=== PATIENT | male | born 1945 | race Caucasian/White ===

== ENCOUNTER → 2017-05-05 | Outpatient (CLI) | payer MEDICARE ==
[~2017-05-05] MED LIST: Z.0.NO CURRENT MEDS
--- NOTE | 2017-05-05 21:51 | EKG ---
Date Performed: 05/05/2017 Time Performed: 11:54:39 PTAGE: 71 years EKG: Sinus rhythm LOW QRS VOLTAGE IN EXTREMITY LEADS MODERATE INTRAVENTRICULAR CONDUCTION DELAY ABNORMAL ECG PREVIOUS TRACING : 10/19/2012 10.34 DOCTOR: Yasmeen Spears Interpretating Date/Time 05/05/2017 21:49:47
== END ==
LOC: PHPRE 11:04
PROVIDERS: ATTEND Ophthalmology
DX: R94.31 Abnormal electrocardiogram [ECG] [EKG] (principal)
CPT/HCPCS: 93005

== ENCOUNTER → 2017-05-19 | Day surgery (SDC) | payer MEDICARE ==
--- NOTE | 2017-05-07 12:28 | MH ---
cc: [facility], JOSE BARKER DATE OF ADMISSION 05/19/2017 ADMISSION DIAGNOSIS Cataract, right eye. HISTORY OF PRESENT ILLNESS This 71-year-old white male is coming through [facility] for the purpose of a lens extraction of the right eye with intraocular lens implant under local anesthesia. He has noted decreasing visual acuity interfering with his daily activities and elected to have the above procedure. He had a similar procedure on the left eye in October 2012 and has done well postoperatively. His best-corrected visual acuity is 20/40 -2 in the right eye in room light and 20/20 in the left eye. PAST MEDICAL HISTORY The patient has a history of the prostate problems and seasonal allergic conjunctivitis. PAST SURGICAL HISTORY Surgical history includes hernia surgery, left arthroscopic knee surgery, prostate ablation and the cataract surgery in the left eye. MEDICATIONS Daily medications include: 1. Multivitamin. 2. Probiotic. 3. History of Flomax use years ago. ALLERGIES No known allergies. SOCIAL HISTORY He does not smoke and drinks alcohol occasionally. FAMILY HISTORY Positive for father with cataract. REVIEW OF SYSTEMS HEAD: Patient denies severe headaches, dizziness or recent head injury. EARS: Patient denies hearing loss, ear pain, discharge or ringing in the ears. NOSE: Patient denies nasal discharge, obstruction or frequent colds. MOUTH AND THROAT: Patient denies soreness of the mouth or tongue, bleeding gums, trouble swallowing, changes in voice or sore throat. NECK: Patient denies neck pain or swelling, limitation of neck movement or neck injury. CARDIOPULMONARY SYSTEM: Patient denies shortness of breath, orthopnea, chronic cough, sputum production, hemoptysis, chest pain, wheezing, palpitations or light-headedness. GI SYSTEM: Patient denies poor appetite, nausea, vomiting, abdominal pain, ulcers, hemorrhoids or change in bowel habits. SYSTEM: The patient denies urinary frequency, dysuria, change in urine color. NERVOUS SYSTEM: Patient denies convulsions, vertigo, stroke, numbness or weakness. PHYSICAL EXAMINATION VITAL SIGNS: Blood pressure 132/86, pulse 76, respirations 20. HEAD: Normocephalic, atraumatic. NOSE: Without rhinorrhea. THROAT: Clear. NECK: Supple. CHEST: Clear. HEART: Regular rhythm. ABDOMEN: Without tenderness. EXTREMITIES: Without edema. NEUROLOGIC: Within normal limits. MENTAL STATUS: Within normal limits. EYE EXAM: The patient's best-corrected visual acuity is 20/40 -2 in the right eye in room light and 20/20 in the left eye. Visual morat[place] are full to confrontation testing. Extraocular muscle exam reveals full versions with orthophoria at distance and near. Pupils are 2.5 mm equal, round, reactive to light without afferent defect. Anterior segment examination reveals nuclear sclerotic, posterior subcapsular and posterior cortical cataract changes in the right eye and posterior chamber intraocular lens in place in the left eye. Intraocular pressure is 22 in each eye by applanation tonometry. Dilated fundus exam revealed sharp disks with cup-to-disk ratio of 0.3 bilaterally. The macula of the right eye is clear. There is some perifoveal cellophaning in the left macula. A posterior vitreous detachment was noted greater in the left eye than the right. IMPRESSION 1. Cataract, right eye. 2. Pseudophakia, left eye. 3. Posterior vitreous detachment, both eyes. 4. Early epiretinal membrane left eye in the macula. 5. Ocular hypertension, mild, both eyes. PLAN Lens extraction of the right eye with intraocular lens implant under local anesthesia through [facility]. The patient has been cleared medically. He has been counseled as to the risks, benefits and alternatives and elected to proceed. I feel that cataract surgery will improve the quality of life and activities of daily living in this patient. MD STANLEY Merlos/MICHAEL /11:53 AM /12:08 PM
[~2017-05-19] VITALS: Ht 172.7 cm; Wt 80.9 kg
[~2017-05-19] MED LIST changes: +ACETYLCHOLINE CHL OPHT SOLN 1:100 2 ML VIAL ONE; +EPINEPHrine HCL PF/SF (1:1000) 1 MG/ML AMP I-OCULAR ONE; +HYALURONIDASE/LIDOCAINE/BUPIVACAINE 5 ML SYR RIGHT EYE ONE; +PILOCARPINE HCL 2% OPHT SOLN 15 ML BTL ONE; +PROPARACAINE HCL 0.5% OPHT SOLN 15 ML BTL RIGHT EYE ONE; +PROPOFOL 200 MG/20 ML AMP ONE; +SODIUM CHLORID 0.9% 500 ML INJ 500 ML ONE; +TOBRAMYCIN/DEXAMETHASONE OPTH OINT 3.5 GM TUBE ONE; +VISCOAT OPHT IRRIG SOLN 0.75 ML SYRINGE ONE; -Z.0.NO CURRENT MEDS; +acetaZOLAMIDE SEQUELS 500 MG SUSTAINED RELEASE CAP ONE
[2017-05-19 10:00] VITALS: PULSE 68
[2017-05-19] MEDS: PHENYLEPHRINE HCL 2.5% OPTH SOLN 2 ML BTL RIGHT EYE SCH ×4 (10:05→10:14)
[2017-05-19] MEDS: DICLOFENAC SOD 0.1% OPHT SOLN 2.5 ML BTL RIGHT EYE SCH ×4 (10:05→10:14)
[2017-05-19] MEDS: CYCLOPENTOLATE HCL 1% OPHT SOLN 2 ML BTL RIGHT EYE SCH ×4 (10:05→10:14)
[2017-05-19] MEDS: TROPICAMIDE 1% OPHT SOLN 15 ML BTL RIGHT EYE SCH ×4 (10:05→10:14)
[2017-05-19] MEDS: GATIFLOXACIN 0.5% OPHT SOLN 2.5 ML BTL RIGHT EYE SCH ×4 (10:05→10:14)
[2017-05-19 10:35] VITALS: PULSE 63
[2017-05-19 12:50] VITALS: BP 128/76; PULSE 56; RESP 16; TEMP 98.2; O2SAT 97
--- NOTE | 2017-05-20 10:44 | MP ---
cc: JOSE ARCHULETA M.D. DATE OF SURGERY 05/19/2017 PREOPERATIVE DIAGNOSIS Cataract, right eye. POSTOPERATIVE DIAGNOSIS Cataract, right eye. OPERATION Extracapsular cataract extraction with posterior chamber intraocular lens implant by phacoemulsification, right eye. SURGEON Jose Archuleta M.D. ANESTHESIA Local. COMPLICATIONS None. INDICATIONS See history and physical previously dictated. OPERATIVE PROCEDURE The patient had adequate retrobulbar and eyelid blocks administered in the holding area and was brought to the operating room. The right eye was prepped and draped in the usual sterile ophthalmic manner. A lid speculum was inserted in the right eye. A 4-0 silk bridle suture was placed through the conjunctiva near the superior rectus muscle and it was tagged to the drape. A fornix-based conjunctival flap was prepared spanning approximately 5 mm in width. Hemostasis was obtained with wet-field cautery. A 3.5 mm groove was made 1 mm from the limbus and dissected up to the limbus in the form of a scleral pocket incision. A stab incision was then made at the 2 o'clock position. Viscoelastic was injected into the anterior chamber. In order to maintain an adequately dilated pupil, it was elected to use iris retractors in this case. Stab incisions were made at the 1 o'clock, 3 o'clock, 5 o'clock, 8 o'clock and 10 o'clock positions. Iris retractors were then inserted through the stab incisions in the peripheral cornea and positioned to enlarge the size of the pupil. The anterior chamber was entered with a 2.75 mm keratome through the scleral pocket incision. A 360 degree continuous curvilinear capsulorrhexis was then performed. Hydrodissection was utilized to divide the nucleus into inner and outer components and to separate the cortex from the capsule. Phacoemulsification was then utilized to remove the nucleus. The outer nuclear layer was removed with irrigation and aspiration and short bursts of ultrasound as necessary. The cortex was removed with the irrigation-aspiration handpiece. The posterior capsule was polished with the capsule polisher. Viscoelastic was injected into the capsular bag. The intraocular lens was inspected and found to be in good condition. The lens utilized was an Tj model SA60AT with a power of +22 diopters. The lens was inserted into the capsular bag. The five iris retractors were removed. The viscoelastic in the anterior chamber was then removed with the irrigation-aspiration hand piece. Viscoelastic was also removed from beneath the intraocular lens. The anterior chamber was filled with Miochol-E through the stab incision and pressurized. The wound was checked for leaks at this pressure and normalized pressure and there were none. The 4-0 bridle suture was removed. The conjunctival flap was brought down over the wound and secured with cautery. Pilocarpine 2% eye drops were instilled topically. The lid speculum was removed. TobraDex ophthalmic ointment was applied. The eye was double patched and shielded. The patient tolerated the procedure well and left the Operating Room in satisfactory condition. MD STANLEY Merlos/MICHAEL /12:16 PM /10:37 AM
== END | disposition home or self-care (01) ==
LOC: PHSDC 08:02
PROVIDERS: ATTEND Ophthalmology
DX: H26.9 Unspecified cataract (principal); H43.813 Vitreous degeneration, bilateral
CPT/HCPCS: 00142; 66984; J0171; J7040; V2632